=== PATIENT | female | born 1960 | race Caucasian/White ===

== ENCOUNTER 2022-07-03 16:26 | Emergency (ER) | payer MEDICARE, SELFPAY ==
--- NOTE | 2022-07-03 16:31 | XRR_ITS ---
PROCEDURE INFORMATION: Exam: XR Chest Exam date and time: 07/03/2022 4:39 PM Age: 62 years old Clinical indication: Pain; Angina pectoris; Additional info: Cp TECHNIQUE: Imaging protocol: Radiologic exam of the chest. Views: 1 view. COMPARISON: No relevant prior studies available. FINDINGS: Lungs: Unremarkable. No consolidation. Pleural spaces: Unremarkable. No pleural effusion. No pneumothorax. Heart/Mediastinum: Unremarkable. No cardiomegaly. Bones/joints: Unremarkable. XR/XR chest 1V portable [id number] IMPRESSION: No acute findings.
[2022-07-03 16:33] VITALS: BP 146/60; PULSE 110; RESP 20; TEMP 36.5; O2SAT 99
--- NOTE | 2022-07-03 16:42 | ECG_ITS ---
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 Measurements Intervals [place] Rate: 66 P: 24 DC: 217 QRS: -15 QRSD: 89 T: 27 QT: 409 QTc: 429 Interpretive Statements SINUS RHYTHM WITH FIRST DEGREE AV BLOCK LOW QRS VOLTAGE IN PRECORDIAL LEADS [QRS DEFLECTION < 1.0 mV IN CHEST LEADS] POSSIBLE ANTERIOR MYOCARDIAL INFARCTION , PROBABLY OLD INFERIOR MYOCARDIAL INFARCTION , PROBABLY OLD No previous ECG available for comparison Electronically Signed On 07-04-2022 8:35:10 CDT by Kyra Felix M.D. [email or web address] [facility] biloxiBee Cave Gamestr[facility].[employer]/store/[id number]
--- NOTE | 2022-07-03 19:28 | ECG_ITS ---
[facility] Test Date: 2022-07-03 Pat Name: Ainsley Gonzalez Department: Room: Gender: Female Integration Manager: : 1960 Requested By: Jr Chamorro Order Number: [id number] Nik MD: Kyra Felix M.D. Measurements Intervals [place] Rate: 108 P: 56 [place]: 140 QRS: -8 QRSD: 85 T: 34 QT: 318 QTc: 426 Interpretive Statements SINUS TACHYCARDIA POSSIBLE ANTERIOR MYOCARDIAL INFARCTION , PROBABLY OLD [30 ms Q WAVE IN V3/V4, OR R < 0.2 mV IN V4] ABNORMAL RHYTHM ECG Compared to ECG 07/03/2022 16:58:27 Sinus rhythm no longer present First degree AV block no longer present Myocardial infarct finding still present Electronically Signed On 07-04-2022 8:38:24 CDT by Kyra Felix M.D. [id number]
== END 2022-07-03 20:17 | disposition left against medical advice (07) ==
PROVIDERS: Emergency Provider Family Medicine
DX: Z53.21 Procedure and treatment not carried out due to patient leaving prior to being seen by health care provider (principal); R53.1 Weakness; R06.02 Shortness of breath
CPT/HCPCS: 71045; 93005

== ENCOUNTER 2022-07-09 10:53 | Inpatient (IN) | payer MEDICARE, SELFPAY ==
[2022-07-09] VITALS (61 sets, daily range): BP systolic 83–165; BP diastolic 41–133; PULSE 69–81; RESP 12–30; TEMP 36.2–36.7; O2SAT 79–100; BMI 36.3
--- NOTE | 2022-07-09 11:00 | XR_ITS ---
WS: [id number] Portable AP upright chest, 07/09/2022 Clinical Data: sob Comparison: Orbital chest, 07/03/2022. Findings: Bilateral patchy lower lobe opacities have developed since last chest x-ray. The right hilu m is prominent in the distal opacities have the appearance of pneumonia and/or atelectasis. There are streaky opacities in the left lower lobe. The upper lobes are clear. The heart is at the upper limit s of normal. The aortic arch and descending thoracic aorta show tortuosity. No nodules or effusions a re seen. There is no pneumothorax. XR/XR chest 1V portable [id number] Impression: 1. Development of patchy bilateral lower lobe opacities most consistent with pn eumonia. 2. Prominent right hilum. 3. Cardiomegaly. 4. Recommend repeat chest x-ray in 2-3 days.
--- NOTE | 2022-07-09 11:05 | ED_ITS ---
HPI - General Adult General: Chief complaint: General Medical Stated complaint: rectal bleeding Time Seen by Provider: 07/09/22 10:53 Source: patient and EMS Mode of arrival: EMS Limitations: no limitations History of Present Illness: 62-year-old female states she has history of hemorrhoids states she been having some rectal bleeding over the last 2 weeks states is actually slowed down the last 2 days had no blood in her stool today she states she is had some nausea though and feels extremely dehydrated. Associated symptoms: Reports malaise and nausea; Deny chest pain, dyspnea, headache(s) or rash Review of Systems Const: Reports: fatigue and malaise Eyes: Denies: blurry vision or eye discomfort ENMT: Denies: throat pain or dental pain Card: Denies: chest pain Resp: Denies: dyspnea GI: Reports: nausea and hematochezia : Denies: dysuria Musc: Denies: neck pain or back pain Skin/Breast: Denies: rash Neuro: Denies: headache(s) Psych: Denies: depression Estiven/Lymph: Denies: easy bruising All/Imm: Denies: urticaria PFSH ED PFSH: Medical History (Updated 07/09/22 @ 12:39 by Jr Chamorro MD) Hemorrhoid Social History (Updated 07/09/22 @ 11:06 by Jr Chamorro MD) Substance/Drug Use: never Physical Exam Const: COMMON NORMALS: no acute distress, patient oriented x3 and healthy appearing HENMT: COMMON NORMALS: normocephalic and atraumatic HEAD & SCALP: normocephalic and atraumatic Eye: COMMON NORMALS: Equal, round and reactive pupils present and EOMs intact bilaterally PUPIL: Yes Equal, round and reactive pupils present Neck/C-Spine: COMMON NORMALS: full ROM and supple Chest: COMMONS NORMALS: normal inspection of the chest and normal palpation of entire chest wall Resp: COMMON NORMALS: normal respiratory effort, No retractions, No use of accessory muscles and clear to auscultation bilaterally AUSCULTATION: clear to auscultation bilaterally Cardio: COMMON NORMALS: regular rate, regular rhythm and No murmurs present (Cardio) RATE: regular rate RHYTHM: regular rhythm GI: COMMON NORMALS: Normal to inspection, nondistended, normoactive bowel sounds present, Soft to palpation, non-tender and no masses PALPATION: Yes Soft to palpation OTHER: no blood on rectal exam no active bleeding Extremity: COMMON NORMALS: normal to inspection and full ROM Neuro: COMMON NORMALS: patient oriented x3, moves all extremities and no focal motor deficits Psych: COMMON NORMALS: mental status grossly normal, Normal thought process present and cooperative THOUGHT PROCESS: Normal thought process present Skin: COMMON NORMALS: no rashes or lesions noted and no wounds GENERAL SKIN EXAM: no rashes or lesions noted Course Vital Signs: Vital signs: Vital Signs Temperature 97.3 F L 07/09/22 10:54 Pulse Rate 72 07/09/22 10:54 Respiratory Rate 16 07/09/22 10:54 Blood Pressure 108/63 07/09/22 10:54 Pulse Oximetry 100 07/09/22 10:54 Oxygen Delivery Me thod 07/09/22 10:54 Oxygen Flow Rate 2 07/09/22 10:54 MDM - General Adult Medical Decision Making Patient presents here with anemia likely from a lower GI bleed her exam here she has no bleeding at this time her vitals have been stable she is quite anemic though x-ray shows a likely pneumonia as well spoke to hospitalist along with surgeon will transfuse and admit at this time. Lab Data : 07/09/22 11:25 07/09/22 11:25 Radiology Impressions Chest X-Ray 07/09/22 11:00 Impression: 1. Development of patchy bilateral lower lobe opacities most consistent with pneumonia. 2. Prominent right hilum. 3. Cardiomegaly. 4. Recommend repeat chest x-ray in 2-3 days. Laboratory Results WBC 14.4 10^3/uL (4.0-10.0) H 07/09/22 11:25 RBC 2.34 10^6/uL (4.1-5.3) L 07/09/22 11:25 Hgb 3.9 g/dL (11.5-15.3) L* 07/09/22 11:25 Hct 14.8 % (37.0-47.0) L* 07/09/22 11:25 MCV 63.2 fl (81-99) L 07/09/22 11:25 MCH 16.7 pg (28.0-34.0) L 07/09/22 11:25 MCHC 26.4 g/dL (30.0-36.0) L 07/09/22 11:25 RDW 16.9 % (12.1-15.1) H 07/09/22 11:25 Plt Count 358 10^3/cmm (130-400) 07/09/22 11:25 MPV 9.2 fL (7.4-10.4) 07/09/22 11:25 Neut % (Auto) 75.9 % 07/09/22 11:25 Lymph % (Auto) 13.2 % 07/09/22 11:25 [place] % (Auto) 8.8 % 07/09/22 11:25 Eos % (Auto) 0.5 % 07/09/22 11:25 Baso % (Auto) 0.1 % 07/09/22 11:25 Neut # (Auto) 10.98 10^3/uL (1.8-7.7) H 07/09/22 11:25 Lymph # (Auto) 1.9 10^3/uL (0.8-4.8) 07/09/22 11:25 [place] # (Auto) 1.3 10^3/uL (0.2-0.9) H 07/09/22 11:25 Eos # (Auto) 0.1 10^3/uL (0.0-0.8) 07/09/22 11:25 Baso # (Auto) 0.0 10^3/uL (0.0-0.1) 07/09/22 11:25 Nucleated RBC % (auto) 3.0 % 07/09/22 11:25 Nucleated RBCs # 0.4 /100WBC 07/09/22 11:25 PT 16.60 SECONDS (12.1-14.9) H 07/09/22 11:25 INR 1.31 (0.8-1.2) H 07/09/22 11:25 Sodium 124 mmol/L (136-145) L 07/09/22 11:25 Potassium 3.5 mmol/L (3.5-5.1) 07/09/22 11:25 Chloride 88 mmol/L (98-107) L 07/09/22 11:25 Carbon Dioxide 21 mmol/L (22-29) L 07/09/22 11:25 Anion Gap 18.5 (5-19) 07/09/22 11:25 BUN 22 mg/dL (8-23) 07/09/22 11:25 Creatinine 1.1 mg/dL (0.5-0.9) H 07/09/22 11:25 GFR Calculation 50.5 mL/min (90-130) L 07/09/22 11:25 Glucose 216 mg/dL (65-115) H 07/09/22 11:25 Calculated Osmolality 268 mOsm/kg (285-295) L 07/09/22 11:25 Calcium 7.9 mg/dL (8.5-10.5) L 07/09/22 11:25 Total Bilirubin 0.6 mg/dL (0.15-1.2) 07/09/22 11:25 AST 491 U/L (0-32) H 07/09/22 11:25 ALT 451 U/L (0-33) H 07/09/22 11:25 Alkaline Phosphatase 107 U/L (35-105) H 07/09/22 11:25 NT-Pro-B Natriuret Pep 555 pg/mL (0-125) H 07/09/22 11:25 Total Protein 6.5 g/dL (6.6-8.7) L 07/09/22 11:25 Albumin 3.3 g/dL (3.5-5.2) L 07/09/22 11:25 Globulin 3.2 g/dL (1.3-4.6) 07/09/22 11:25 Lipase 41 U/L (13-60) 07/09/22 11:25 Critical Care Time Critical Care Time: Critical Care Time: Yes Total Critical Care Time: 40 Attestation: The high probability of a clinically significant, sudden or life threatening deterioration of the patient's g system(s) required my full and direct atten tion, intervention and personal management. The critical care time is as shown. This time is in addition to time spent performing any reported procedures but includes the following: [x] Data and vital sign review and interpretation [x] Patient assessment, examination and intervention [x] Documentation [x] Medication orders and management Discharge Plan Discharge Patient Disposition: Admitted As Inpatient Clinical Impression: Acute lower gastrointestinal bleeding, Anemia, Pneumonia Coding Level of Care Code ED Director Social for [facility] Fwd Exam Comprehensive
[2022-07-09 11:46] LABS: Basophils % 0.1 %; Eosinophils # 0.1 10^3/uL (0.0-0.8); Eosinophils % 0.5 %; Lymphocytes # 1.9 10^3/uL (0.8-4.8); Lymphocytes % 13.2 %; Mean Corpuscular HGB Conc 26.4 g/dL (30.0-36.0); Mean Corpuscular Hemoglobin 16.7 pg (28.0-34.0); Mean Corpuscular Volume 63.2 fl (81-99); Mean Platelet Volume 9.2 fL (7.4-10.4); Monocytes # 1.3 10^3/uL (0.2-0.9); Monocytes % 8.8 %; Neutrophils # 10.98 10^3/uL (1.8-7.7); Neutrophils % 75.9 %; Nucleated Red Blood Cells # 0.4 /100WBC; Platelet Count 358 10^3/cmm (130-400); Red Blood Count 2.34 10^6/uL (4.1-5.3); Red Cell Distribution Width 16.9 % (12.1-15.1); White Blood Count 14.4 10^3/uL (4.0-10.0)
[2022-07-09 11:48] LABS: Hemoglobin 3.9 g/dL (11.5-15.3)
[2022-07-09 11:49] LABS: Hematocrit 14.8 % (37.0-47.0)
--- NOTE | 2022-07-09 11:53 | PC.NURSE ---
pt reports rectal bleeding for 2 weeks. reports today feels lightheadedness, nausea, and vomiting. reports her blood sugar has been elevated at 345. reports rectal bleeding is bright red and significant amount that she cannot see her BM due to the redness of the toilet water. denies diarrhea pt reports blood clots the size of her hand. pt is alert, speech clear, speaking in complete sentences. skin pink/warm/dry. pt lung sounds clear. bowel sounds hyperactive. abdomen soft to palpation
[2022-07-09 11:59] LABS: INR 1.31 (0.8-1.2)
[2022-07-09] MEDS: sodium chloride 0.9% 1,000 ML 999 ML IV (11:59)
[2022-07-09] MEDS: ondansetron 2 mg/ML SDV 2 mL 4 MG IVP (12:16)
[2022-07-09 12:24] LABS: Alanine Aminotransferase 451 U/L (0-33); Albumin Level 3.3 g/dL (3.5-5.2); Alkaline Phosphatase 107 U/L (35-105); Anion Gap 18.5 (5-19); Aspartate Amino Transferase 491 U/L (0-32); Blood Urea Nitrogen 22 mg/dL (8-23); Calcium 7.9 mg/dL (8.5-10.5); Carbon Dioxide 21 mmol/L (22-29); Chloride 88 mmol/L (98-107); Globulin 3.2 g/dL (1.3-4.6); Glomerular Filtration Rate 50.5 mL/min (90-130); Glucose 216 mg/dL (65-115); Lipase 41 U/L (13-60); NT Pro B Type Natriuretic Pept 555 pg/mL (0-125); Osmolality Calculated 268 mOsm/kg (285-295); Potassium 3.5 mmol/L (3.5-5.1); Sodium 124 mmol/L (136-145); Total Bilirubin 0.6 mg/dL (0.15-1.2); Total Protein 6.5 g/dL (6.6-8.7)
[2022-07-09] MEDS: cefTRIAXone 1,000 MG in sodium chloride 0.9% (plus) 50 ML 100 MG IV (13:05)
[2022-07-09 13:17] LABS: Hematocrit 13.8 % (37.0-47.0); Hemoglobin 3.7 g/dL (11.5-15.3)
--- NOTE | 2022-07-09 13:25 | ECG_ITS ---
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 Measurements Intervals [place] Rate: 77 P: 59 [place]: 152 QRS: 27 QRSD: 89 T: 57 QT: 391 QTc: 444 Interpretive Statements SINUS RHYTHM NONSPECIFIC ST & T-WAVE ABNORMALITY Compared to ECG 07/03/2022 19:28:44 T-wave abnormality now present Sinus tachycardia no longer present Myocardial infarct finding no longer present Electronically Signed On 07-09-2022 20:44:03 CDT by Kristi Gomes M.D. [id number]
[2022-07-09 13:38] LABS: SARS Covid-2 Antigen Negative (Negative)
[2022-07-09] MEDS: azithromycin 500 MG in sodium chloride 0.9% 250 ML 250 MG IV (13:48)
--- NOTE | 2022-07-09 14:47 | PC.NURSE ---
blood transfusion in progress, RN remaining in room for first 15 minutes. pt tolerating infusing well. pt reports she has had multiple blood transfusions in the past.
[2022-07-09] MEDS: sodium chloride 0.9% (100 ml) 100 ML 400 ML (16:31)
[2022-07-09 17:08] LABS: Urine Appearance Hazy (CLEAR); Urine Color Yellow (Yellow)
[2022-07-09 17:09] LABS: Add Urine Culture? No; Add Urine Microscopic? YES; Bacteria Urine 1+ /hpf; Bilirubin Urine 1+ (Negative); Blood Urine Neg (Negative); Glucose Urine UA Norm (Normal); Ketones Urine Negative (Negative); Leukocyte Esterase Urine Negative (Negative); Nitrate Urine Negative (Negative); Protein Urine 1+ (Negative); RBC Urine 0-4 /hpf (0-2); Squamous Epithelial Cell Urine 0-4 /hpf (0-5); Urobilinogen Urine 1 mg/dL (Negative); WBC Urine 0-4 /hpf (0-5); pH Urine 5 (5-7)
[2022-07-09 17:33] LABS: Hematocrit 17.4 % (37.0-47.0); Hemoglobin 4.9 g/dL (11.5-15.3)
--- NOTE | 2022-07-09 17:59 | PM.CONSULT ---
Providers/Reason For Consult Consulting Physician/Specialty*: Lower GI bleed Reason for Consult*: Chinedu Kendall MD Attending Physician: Zenobia García MD History of Present Illness History of Present Illness Ms. Ainsley Gonzalez is a pleasant 62 year old female presenting to the emergency department with weakness associated with rectal bleeding that has been taking place over the past couple of weeks and eventually it did slow down and started to have another episode of fresh bleeding per rectum associated with blood clots. Patient presented to the emergency department for further evaluation and she reported to me that she had previous hemorrhoid surgery many years ago and had a colonoscopy back in 2016 and that was normal per her description. Patient gives history of COPD. Patient denies history of peptic ulcer disease or being on blood thinners. Patient was admitted on the hospitalist service in the ICU setting for further resuscitation and evaluation General surgery was consulted for further care. Review of Systems General: Reports: 10 or more systems reviewed and unremarkable except in HPI and below Medications/Allergies Home Medications Medication Instructions Recorded Confirmed Last Taken Type albuterol sulfate 90 mcg/actuation 2 puff inhalation Q4H PRN 07/09/22 07/09/22 Unknown History aerosol inhaler Shortness Of Breath Or Wheezing aspirin-caffeine 500 mg-32.5 mg 1 tab PO Q6H PRN Pain 07/09/22 07/09/22 07/08/22 History tablet (Niurka Back and Body) biotin 5,000 mcg disintegrating 5,000 mcg PO DAILY 07/09/22 07/09/22 07/08/22 History tablet docusate sodium 100 mg tablet 200 mg PO BEDTIME 07/09/22 07/09/22 07/08/22 History (Stool Softener) duloxetine 60 mg capsule,delayed 60 mg PO BEDTIME 07/09/22 07/09/22 07/08/22 History release estradiol 2 mg tablet 2 mg PO DAILY 07/09/22 07/09/22 07/08/22 History magnesium 250 mg tablet 250 mg PO BEDTIME 07/09/22 07/09/22 07/08/22 History melatonin 10 mg tablet 10 mg PO BEDTIME 07/09/22 07/09/22 07/08/22 History metformin 1,000 mg tablet 1,000 mg PO BID 07/09/22 07/09/22 07/08/22 History metoprolol succinate 100 mg 100 mg PO DAILY 07/09/22 07/09/22 07/08/22 History tablet,extended release 24 hr omeprazole 20 mg capsule,delayed 20 mg PO DAILY 07/09/22 07/09/22 07/08/22 History release pramipexole 1 mg tablet 2 mg PO BID 07/09/22 07/09/22 07/08/22 History progesterone micronized 200 mg 200 mg PO BEDTIME 07/09/22 07/09/22 07/08/22 History capsule thyroid (pork) 30 mg tablet (CERTIFIED MEDICINE AIDE 30 mg PO DAILY 07/09/22 07/09/22 07/08/22 History Thyroid) triamterene 37.5 1 cap PO DAILY 07/09/22 07/09/22 07/08/22 History mg-hydrochlorothiazide 25 mg capsule zinc 50 mg tablet 50 mg PO BID 07/09/22 07/09/22 07/08/22 History Allergies Allergy/AdvReac Type Severity Reaction Status Date / Time No Known Allergies Allergy Verified 07/09/22 18:03 PFSH Acute PFSH: Medical History Hemorrhoid Social History Substance/Drug Use: never Vitals/I&O/Wt Last Vital Signs Temp 97.2 F L 07/09/22 17:37 Pulse 78 07/09/22 17:37 Resp 12 07/09/22 17:37 BP 118/70 07/09/22 17:37 Pulse Ox 100 07/09/22 17:37 O2 Del Method 07/09/22 10:54 O2 Flow Rate 2 07/09/22 10:54 07/09/22 07/09/22 07/09/22 06:59 14:59 22:59 Intake Total 300 / 300 250 / 550 Balance 300 / 300 250 / 550 Weight last 48 hrs Weight 212 lb Physical Exam Const: COMMON NORMALS: no acute distress and patient oriented x3 GENERAL APPEARANCE: cooperative ORIENTATION/CONSCIOUSNESS: Yes awake, Yes oriented to person, Yes oriented to place and Yes oriented to time HENMT: COMMON NORMALS: normocephalic HEAD & SCALP: normocephalic Eye: COMMON NORMALS: Equal, round and reactive pupils present and no scleral icterus PUPIL: Yes Equal, round and reactive pupils present Lymph: LYMPHATIC: no lymphadenopathy noted Chest: COMMONS NORMALS: normal inspection of the chest Resp: COMMON NORMALS: normal respiratory effort and clear to auscultation bilaterally AUSCULTATION: clear to auscultation bilaterally Cardio: COMMON NORMALS: S1 normal heart sound present and S2 normal heart sound present; negative for No murmurs present (Cardio) HEART SOUNDS: S1 normal heart sound present and S2 normal heart sound present GI: COMMON NORMALS: Soft to palpation; negative for No hepatosplenomegaly present INSPECTION: Yes normal to inspection PALPATION: Yes Soft to palpation, No Firmness to palpation present (GI), No Tenderness to palpation present (GI), No Guarding due to palpation present (GI), No Rigid due to palpation and No No hepatosplenomegaly present Neuro: COMMON NORMALS: patient oriented x3 SENSORIUM/ORIENTATION: Yes oriented to person, Yes oriented to place and Yes oriented to time Psych: COMMON NORMALS: mental status grossly normal Skin: COMMON NORMALS: no rashes or lesions noted GENERAL SKIN EXAM: no rashes or lesions noted Data : 07/09/22 17:11 07/09/22 11:25 Micro: Microbiology 07/09/22 12:38 Blood Culture - Preliminary Blood SPECIMEN COLLECTED 07/09/22 12:41 Blood Culture - Preliminary Blood SPECIMEN COLLECTED A&P Assessment and plan (1) Acute lower gastrointestinal bleeding: Plan of care; After thorough history and physical examination and reviewing the chart, plan to perform a diagnostic esophagogastroduodenoscopy and diagnostic colonoscopy with possible biopsy and possible polypectomy with examination under anesthesia and possible hemorrhoidectomy. We will plan to proceed once medically appropriate and patient is well resuscitated. At the same time if patient shows signs of deterioration and continue to have more episodes of bleeding I would highly recommend to have the patient transferred to higher level of care for potential angioembolization as we do lack in our facility. As the source of bleeding could be from an upper GI or lower GI source. If the patient's EGD and colonoscopy are normal the neck step would be capsule endoscopy. Continue n.p.o. except for ice chips and close monitoring in the ICU Assurance and education All questions have been answered and all concerns have been addressed to patient's satisfaction. Status: Acute Consult Attestations Medical Necessity Statement: Per admitting service Coding Level of Care Code Acute Back Up Machine Operator for g Fwd Diagnoses Acute lower gastrointestinal bleeding K92.2
[2022-07-09] MEDS: pantoprazole 40 mg SDV IVP (18:49)
[2022-07-09] MEDS: sodium chloride 0.9% (100 ml) 100 ML (18:49)
--- NOTE | 2022-07-09 19:28 | P.HP_ITS ---
Providers/Chief Complaint Admitting Physician: Zenobia García MD Chief Complaint: rectal bleeding History of Present Illness Ainsley Gonzalez is a 62 year old female PMH hemorrhoids presenting to the ER today for c/o broght red bleeding per rectum which started 2 weeks ago. Initially it was sporadic, later became more frequent for which she came to ER. additionally now c/o fatigue, chest tightness and shortness of breath with minimal exertion. bleeding per rectum is associated with bowel movements. Stool is brown colores. no noted susi, no hematemesis. H/o rectal bleeding + in the past needing cauterization. Hb has dropped to 5 in the past. Required multiple blood transfusions. HB today at 3.9. BP at time of assessment is 100/68mmhg. No tachycardia. Denies abdominal pain. Review of Systems General: Reports: 10 or more systems reviewed and unremarkable except in HPI and below Const: Denies: fever(s), chills or body aches Eyes: Denies: change in vision, blurry vision or photophobia ENMT: Reports: hoarseness; Denies: throat pain, enlarged tonsils, odynophagia or nasal congestion Card: Denies: chest pain, palpitations, irregular heart rhythm, edema, swelling of feet/ankles, lightheadedness, pre-syncope, dyspnea on exertion or orthopnea Resp: Denies: dyspnea, productive cough, non-productive cough, wheezing, stridor, pain on inspiration, change in phlegm color, hemoptysis or chest co ngestion GI: Denies: abdominal pain, nausea, vomiting, hematemesis, coffee ground emesis, dysphagia, heartburn, diarrhea, constipation, GI cramping, change in stool character, hematochezia or melena : Denies: flank pain, difficulty voiding, dysuria, urinary frequency, urinary urgency, urinary hesitancy or hematuria Musc: Denies: neck pain, back pain, extremity pain, joint swelling, joint warmth or deformity Neuro: Denies: headache(s), numbness in extremities, weakness in extremities, sensory changes, difficulty walking, frequent falls, dizziness, vertigo, behavioral changes, Slurred speech present or seizure-like activity Psych: Denies: anxiety, depression, suicidal ideation or homicidal ideation Endo: Denies: polyuria, polydipsia, tired all the time, cold intolerance or hot flashes Estiven/Lymph: Denies: easy bruising or easy bleeding Medications/Allergies Home Medications Medication Instructions Recorded Confirmed Last Taken Type albuterol sulfate 90 mcg/actuation 2 puff inhalation Q4H PRN 07/09/22 07/09/22 Unknown History aerosol inhaler Shortness Of Breath Or Wheezing aspirin-caffeine 500 mg-32.5 mg 1 tab PO Q6H PRN Pain 07/09/22 07/09/22 07/08/22 History tablet (Niurka Back and Body) biotin 5,000 mcg disintegrating 5,000 mcg PO DAILY 07/09/22 07/09/22 07/08/22 History tablet docusate sodium 100 mg tablet 200 mg PO BEDTIME 07/09/22 07/09/22 07/08/22 History (Stool Softener) duloxetine 60 mg capsule,delayed 60 mg PO BEDTIME 07/09/22 07/09/22 07/08/22 History release estradiol 2 mg tablet 2 mg PO DAILY 07/09/22 07/09/22 07/08/22 History magnesium 250 mg tablet 250 mg PO BEDTIME 07/09/22 07/09/22 07/08/22 History melatonin 10 mg tablet 10 mg PO BEDTIME 07/09/22 07/09/22 07/08/22 History metformin 1,000 mg tablet 1,000 mg PO BID 07/09/22 07/09/22 07/08/22 History metoprolol succinate 100 mg 100 mg PO DAILY 07/09/22 07/09/22 07/08/22 History tablet,extended release 24 hr omeprazole 20 mg capsule,delayed 20 mg PO DAILY 07/09/22 07/09/22 07/08/22 History release pramipexole 1 mg tablet 2 mg PO BID 07/09/22 07/09/22 07/08/22 History progesterone micronized 200 mg 200 mg PO BEDTIME 07/09/22 07/09/22 07/08/22 History capsule thyroid (pork) 30 mg tablet (AUDITING SPECIALIST 30 mg PO DAILY 07/09/22 07/09/22 07/08/22 History Thyroid) triamterene 37.5 1 cap PO DAILY 07/09/22 07/09/22 07/08/22 History mg-hydrochlorothiazide 25 mg capsule zinc 50 mg tablet 50 mg PO BID 07/09/22 07/09/22 07/08/22 History Allergies Allergy/AdvReac Type Severity Reaction Status Date / Time No Known Allergies Allergy Verified 07/09/22 18:03 PFSH Acute PFSH: Medical History Hemorrhoid Social History Substance/Drug Use: never Vitals/I&O/Wt Last Vital Signs Temp 98.1 F 07/09/22 18:11 Pulse 76 07/09/22 18:11 Resp 18 07/09/22 18:11 BP 101/76 07/09/22 18:11 Pulse Ox 96 07/09/22 18:11 O2 Del Method 07/09/22 17:51 O2 Flow Rate 2 07/09/22 10:54 07/09/22 07/09/22 07/09/22 06:59 14:59 22:59 Intake Total 300 / 300 250 / 550 Balance 300 / 300 250 / 550 Weight last 48 hrs Weight 96.162 kg Physical Exam Narrative: General: No acute distress, AO x3 HEENT: PERRLA, pupils bilaterally equal and reactive Chest: Normal vesicular breath sounds, no added sounds, equal good air entry bilaterally CVS: S1-S2 regular, no murmurs, no tachycardia, no gallops, no rubs Abdomen: Soft, nontender, no organomegaly, bowel sounds present Neuro: No focal deficits, no facial deformity, AO x3, power 5/5 in all limbs Extremities: no edema, clubbing, LAD Data : 07/09/22 17:11 07/09/22 11:25 Micro: Microbiology 07/09/22 12:38 Blood Culture - Preliminary Blood SPECIMEN COLLECTED 07/09/22 12:41 Blood Culture - Preliminary Blood SPECIMEN COLLECTED A&P Assessment and plan (1) Acute lower gastrointestinal bleeding: bright red bleeding er rectum May be hemorrhoidal bleed Last bloody BM at ~5PM today NPO in anticiptaion of colonoscopy Hb at 3.9, transfuse 3 units blood , monitor h&h every 8 hrs BP currently stable, likely suggesting subacute bleeding Status: Acute (2) Anemia: Likely from blood loss PRBC transfusion as above Likely that exertional dyspnea is related to anemia. will check baseline troponin No ST-T wave changes on EKG Status: Acute Attestations Medical Necessity Statement*: anticipate >2midnight admission for management of lower GI bleed, anemia, transfusion, likely GI scope Critical Care Time: The high probability of a clinically significant, sudden or life threatening deterioration of the patient's [heme,GI] system(s) required my full and direct attention, intervention and personal management. The critical care time is as shown. This time is in addition to time spent performing any reported procedures but includes the following: [x] Data and vital sign review and interpretation [x] Patient assessment, examination and intervention [x] Documentation [x] Medication orders and management Critical Care Time (min): 45 Coding Level of Care Code Acute Veterinary Attendant for [facility] Fwd Diagnoses Acute lower gastrointestinal bleeding K92.2 Anemia D64.9
[2022-07-09] MEDS: duloxetine 60 mg Capsule PO (20:19)
[2022-07-09] MEDS: docusate sodium 100 mg Capsule 200 MG PO (20:19)
[2022-07-09] MEDS: hyDROXYzine 25 mg Capsule PO (20:19)
--- NOTE | 2022-07-09 22:17 | USCV_ITS ---
Ainsley Gonzalez Age: 62 Gender: F : 1960 Exam Date: 07/09/2022 23:18 Ordering Phys: Zenobia García MD Technologist: NASREEN Exam Location: [facility] [place] Indication: anemia c/o bleeding hemorrhoids, No history of cardiac intervention per patient. BP: 129 / 63 HR: 74 Rhythm: Sinus Technical Quality: Adequate MEASUREMENTS (Male / Female) Normal Values 2D ECHO LV Diastolic Diameter PLAX 4.5 cm 4.2 - 5.9 / 3.9 - 5.3 cm LV Systolic Diameter PLAX 2.9 cm IVS Diastolic Thickness 1.7 cm 0.6 - 1.0 / 0.6 - 0.9 cm IVS Systolic Thickness 1.9 cm LVPW Diastolic Thickness 1.4 cm 0.6 - 1.0 / 0.6 - 0.9 cm LVPW Systolic Thickness 1.6 cm LVOT Diameter 1.9 cm LV Ejection Fraction 2D Teich 64.3 % LV Ejection Fraction MOD 2C 64.5 % LV Ejection Fraction 2C AL 64.2 % LA Diameter 3.8 cm LA Width 5.0 cm LA Height 5.6 cm RA Width 3.4 cm RA Height 4.0 cm Aorta at Sinotubular Diameter 2.7 cm IVC Diameter 2.6 cm M-MODE Aortic Annulus Diameter 2.4 cm LA Ao Ratio MM 1.7 MV E Point Septal Separation 0.3 cm DOPPLER AV Peak Velocity 142.0 cm/s LVOT Peak Velocity 100.0 cm/s AV Area Cont Eq vti 2.0 cm squared AV Area Cont Eq pk 2.0 cm squared MV Area PHT 4.2 cm squared Mitral E to A Ratio 1.1 MV E' Velocity 64.5 cm/s Mitral E to MV E' Ratio 10.8 Mitral E to LV E' Lateral Ratio 11.9 Mitral E to LV E' Septal Ratio 10.0 TR Peak Velocity 281.0 cm/s TR Peak Gradient 31.6 mmHg TV Peak E Velocity 69.0 cm/s Right Atrial Pressure 5.0 mmHg Pulmonary Artery Systolic Pressu 36.6 mmHg PV Peak Velocity 85.0 cm/s RV Acceleration Time 0.2 s RV Ejection Time 0.4 s RV AcT/ET 0.4 FINDINGS Left Ventricle Normal left ventricular cavity size and mildly increased wall thickness. Normal left ventricular systolic function. Left ventricular ejection fraction is estimated at 65 %. Normal diastolic function. Right Ventricle Normal right ventricular size and systolic function. Right ventricular systolic pressure 50 mmHg. Right Atrium Normal right atrial size. Left Atrium Mildly increased left atrial size. Mitral Valve Structurally normal mitral valve. No mitral valve stenosis. Mild mitral valve regurgitation. Aortic Valve Structurally normal trileaflet aortic valve. No aortic valve stenosis. No aortic valve regurgitation. Tricuspid Valve Structurally normal tricuspid valve. No tricuspid valve stenosis. Trace to mild tricuspid valve regurgitation. Pulmonic Valve Pulmonic valve not well visualized. No pulmonary valve stenosis. No pulmonary valve regurgitation. Pericardium No pericardial effusion. Aorta Normal size aortic root and proximal ascending aorta. IVC Dilated inferior vena cava with no respiratory variation. CONCLUSIONS 1. Normal left ventricular cavity size and mildly increased wall thickness. Normal left ventricular systolic function. Left ventricular ejection fraction is estimated at 65 %. Normal diastolic function. 2. Normal right ventricular size and systolic function. 3. Mild mitral valve regurgitation. 4. Moderate pulmonary hypertension with pulmonary pressure estimated at 50 mmHg. 5. Dilated inferior vena cava with no respiratory variation. 6. No prior similar studies to compare. Kyra Felix MD (Electronically Signed) Final Date: 10 July 2022 12:21 S
[2022-07-10] VITALS (95 sets, daily range): BP systolic 94–157; BP diastolic 50–103; PULSE 63–89; RESP 12–32; TEMP 36.4–36.7; O2SAT 88–100
--- NOTE | 2022-07-10 00:17 | ECG_ITS ---
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 Measurements Intervals [place] Rate: 80 P: 76 MI: 153 QRS: 72 QRSD: 85 T: 87 QT: 388 QTc: 448 Interpretive Statements SINUS RHYTHM NONSPECIFIC T-WAVE ABNORMALITY Compared to ECG 07/09/2022 13:25:39 No significant changes Electronically Signed On 07-10-2022 16:31:13 CDT by Kyra Felix M.D. [id number]
[2022-07-10 00:38] LABS: Troponin T (5th) Once 25 ng/L (0-10)
[2022-07-10 00:44] LABS: Hematocrit 21.3 % (37.0-47.0)
[2022-07-10 01:14] LABS: Hemoglobin 6.2 g/dL (11.5-15.3)
[2022-07-10 01:36] LABS: Procalcitonin 0.13 ng/mL (0-0.5)
--- NOTE | 2022-07-10 04:17 | ECG_ITS ---
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 Measurements Intervals [place] Rate: 74 P: 58 CO: 159 QRS: 27 QRSD: 94 T: 47 QT: 386 QTc: 430 Interpretive Statements SINUS RHYTHM Compared to ECG 07/10/2022 01:39:36 T-wave abnormality no longer present Electronically Signed On 07-10-2022 16:30:55 CDT by Kyra Felix M.D. [email or web address]invendo medicalloma linda university medical centerFlickr/store/[id number]
[2022-07-10] MEDS: sodium chloride 0.9% (100 ml) 100 ML (05:42)
--- NOTE | 2022-07-10 06:07 | CT_ITS ---
WS: [id number] CT ABDOMEN PELVIS TECHNIQUE: Contrast-enhanced CT of the abdomen and pelvis with coronal and sagittal reformatted image s. CLINICAL INFORMATION: Lower GI bleed COMPARISON: None. DLP: 921.[address] scans at [facility] use at least one of these dose optimization techniques: automated e xposure control; mA and/or kV adjustment per patient size (includes targeted exams where dose is matc hed to clinical indication); or iterative reconstruction. FINDINGS: Diffuse fatty infiltration liver. Cholecystectomy clips. Mild intrahepatic biliary dilatation likely physiologic postcholecystectomy. Normal portal vein and splenic vein. Normal spleen. Normal GE juncti on. Small RIGHT greater than LEFT pleural effusions. Compressive atelectasis in the lower lobes RIGHT greater than LEFT. Small amount of inflammatory stranding and fluid about the C-loop of the duodenum is nonspecific but can be seen with duodenitis. Normal pancreatic enhancement. No definite evidence of acute pancreatitis. Common bile duct appears to taper normally. Adrenal glands are normal. Normal renal parenchymal enhancement. No hydronephrosis. Normal caliber ab dominal aorta. Sigmoid diverticulosis. Mild thickening involving the sigmoid colon with minimal induration can be se en with early or mild diverticulitis. No drainable abscess or fluid collection. Colon is otherwise no rmal in appearance. Trace fluid in the pelvis. Normal caliber abdominal aorta. Tiny fat-containing umbilical hernia. Minimal anterolisthesis L4 on L 5. CT/CT abdomen pelvis w con* [id number] IMPRESSION: 1. Suspicion for mild or early diverticulitis with thickening of the sigmoid c olon with minimal induration. 2. Small RIGHT greater than LEFT pleural effusion with compressive atelectasis in the lung bases. 3. Small amount of induration and edema about the C-loop of duodenum can be se en with duodenitis. Pancreas appears normal. Recommend correlation with pancrea tic function studies to exclude pancreatitis. 4. Mild diffuse fatty infiltration of the liver. 5. No other suspicious findings.
[2022-07-10] MEDS: sodium chloride 0.9% 1,000 ML 100 ML IV (06:33)
[2022-07-10 06:49] LABS: Basophils # 0.1 10^3/uL (0.0-0.1); Basophils % 0.6 %; Eosinophils # 0.1 10^3/uL (0.0-0.8); Eosinophils % 1.1 %; Hematocrit 25.6 % (37.0-47.0); Hemoglobin 7.8 g/dL (11.5-15.3); Lymphocytes # 1.7 10^3/uL (0.8-4.8); Lymphocytes % 15.6 %; Mean Corpuscular HGB Conc 30.5 g/dL (30.0-36.0); Mean Corpuscular Hemoglobin 21.5 pg (28.0-34.0); Mean Platelet Volume 9.4 fL (7.4-10.4); Monocytes # 0.8 10^3/uL (0.2-0.9); Monocytes % 7.2 %; Neutrophils # 7.88 10^3/uL (1.8-7.7); Neutrophils % 72.9 %; Nucleated Red Blood Cells # 0.3 /100WBC; Nucleated Red Blood Cells % 2.6 %; Platelet Count 372 10^3/cmm (130-400); Red Blood Count 3.62 10^6/uL (4.1-5.3); Red Cell Distribution Width 24.3 % (12.1-15.1); White Blood Count 10.8 10^3/uL (4.0-10.0)
[2022-07-10 06:50] LABS: Mean Corpuscular Volume 70.7 fl (81-99)
[2022-07-10] MEDS: iohexol 350 mg/mL 100 mL Btl IV (09:02)
[2022-07-10] MEDS: pantoprazole 40 mg SDV IVP ×2 (09:06→13:48)
[2022-07-10] MEDS: peg /e-lyte soln 4,000 mL Btl 4000 ML PO (09:06)
[2022-07-10] MEDS: metoprolol succinate ER (24 HR) 100 mg Tablet PO (09:07)
[2022-07-10 09:54] LABS: Hematocrit 25.3 % (37.0-47.0); Hemoglobin 7.6 g/dL (11.5-15.3)
[2022-07-10 10:10] LABS: Alanine Aminotransferase 498 U/L (0-33); Albumin Level 3.1 g/dL (3.5-5.2); Alkaline Phosphatase 125 U/L (35-105); Anion Gap 15.8 (5-19); Aspartate Amino Transferase 359 U/L (0-32); Blood Urea Nitrogen 14 mg/dL (8-23); Calcium 7.5 mg/dL (8.5-10.5); Carbon Dioxide 23 mmol/L (22-29); Chloride 93 mmol/L (98-107); Glomerular Filtration Rate 72.9 mL/min (90-130); Glucose 160 mg/dL (65-115); Osmolality Calculated 272 mOsm/kg (285-295); Sodium 129 mmol/L (136-145); Total Bilirubin 1.3 mg/dL (0.15-1.2); Total Protein 6.1 g/dL (6.6-8.7)
[2022-07-10 10:16] LABS: Potassium 2.8 mmol/L (3.5-5.1)
[2022-07-10 10:42] LABS: Hepatitis A Antibody IgM Non-Reactive (Nonreactive); Hepatitis B Core AB, Total Non-Reactive (Nonreactive); Hepatitis B Surface AB 3.5 (11.5-1000); Hepatitis B Surface Antigen Non-Reactive (Nonreactive); Hepatitis C Virus Antibody Non-Reactive (Nonreactive)
[2022-07-10 12:07] LABS: Troponin T (5th) Once 36 ng/L (0-10)
[2022-07-10] MEDS: FUROsemide 10 mg/mL SDV 4mL 40 MG IVP (13:29)
[2022-07-10] MEDS: potassium chloride premix 100 ML 25 MEQ IV ×2 (13:30→17:35)
[2022-07-10] MEDS: piperacillin-tazobactam 3.375 GM in sodium chloride 0.9% (plus) 50 ML IV ×2 (13:48→23:11)
[2022-07-10] MEDS: lidocaine 1% INJ 20 mL 5 ML IV (13:48)
--- NOTE | 2022-07-10 13:52 | ECG_ITS ---
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 Measurements Intervals [place] Rate: 78 P: 57 NE: 163 QRS: 23 QRSD: 85 T: 48 QT: 373 QTc: 425 Interpretive Statements SINUS RHYTHM WITH SINUS ARRHYTHMIA Compared to ECG 07/10/2022 06:27:07 No significant changes Electronically Signed On 07-10-2022 16:22:29 CDT by Kyra Felix M.D. [email or web address] memorial community hospitalBlu Health Systemsgenesis hospitalCollete Davis Racing[employer]/store/[id number]
[2022-07-10] MEDS: morphine 4 mg/mL SDV 1 mL 2 MG IVP (13:55)
--- NOTE | 2022-07-10 13:58 | P.PN_ITS ---
Subjective Subjective: Patient complains of chest pressure. Similar to the one she was experiencing last evening. Troponins have been at 20, then 35. No acute changes on EKG. Abdominal CT was performed earlier this morning per surgery recommendations which showed possible diverticulitis. Additionally also showed bilateral pleural effusions. She had 1 bloody bowel movement this morning. Medications: Reviewed: Yes Vitals/I&O/Wt Last Vital Signs Temp 97.9 F 07/10/22 03:30 Pulse 75 07/10/22 12:30 Resp 22 H 07/10/22 13:55 BP 144/80 07/10/22 06:15 Pulse Ox 93 07/10/22 13:55 O2 Del Method 07/10/22 09:45 O2 Flow Rate 2 07/10/22 09:45 07/09/22 07/10/22 07/10/22 22:59 06:59 14:59 Intake Total 1800 / 2100 350 / 2450 Output Total 150 / 150 275 / 425 Balance 1650 / 1950 75 / 2025 Weight last 48 hrs Weight 99.473 kg Weight 96.162 kg Physical Exam Narrative: General: No acute distress, AO x3 HEENT: PERRLA, pupils bilaterally equal and reactive Chest: Normal vesicular breath sounds, no added sounds, equal good air entry bilaterally CVS: S1-S2 regular, no murmurs, no tachycardia, no gallops, no rubs Abdomen: Soft, nontender, no organomegaly, bowel sounds present Neuro: No focal deficits, no facial deformity, AO x3, power 5/5 in all limbs Extremities: no edema, clubbing, LAD Data : 07/10/22 09:40 07/10/22 09:40 Micro: Microbiology 07/09/22 12:38 Blood Culture - Preliminary Blood NEGATIVE TO DATE 07/09/22 12:41 Blood Culture - Preliminary Blood NEGATIVE TO DATE A&P Assessment and plan (1) Acute lower gastrointestinal bleeding: bright red bleeding per rectum Underwent CT of the abdomen pelvis today which showed additional possibility of diverticulitis. Suspect cause of her bleeding to be diverticular bleeding versus hemorrhoidal bleeding. Plan for a flex sigmoidoscopy and upper GI endoscopy tomorrow. Holding off on full colonoscopy due to possibility of diverticulitis now. Start piperacillin tazobactam empirically. Status: Acute (2) Anemia: Likely from blood loss Hemoglobin upon admission was at 3.9. Patient is currently hemodynamically stable. She is status post 2 packed red blood cell transfusion. Hemoglobin is currently at 7.6. We will continue to monitor H&H every 8 hours. Transfusion threshold to be 7. Status: Acute (3) Chest pain: Suspect that patient's chest pain is currently related to demand ischemia. There are no acute ST-T wave changes noted on her EKG. However she does have evidence of CHF with preserved ejection fraction, likely precipitated by severe anemia. Signs of fluid overload include bilateral pleural effusion, transaminitis likely from congestive hepatopathy, elevated BNP, new oxygen requirement. Chest x-ray shows bilateral infiltrates, official read is that of pneumonia, however per my interpretation this is more likely to be pulmonary edema rather than pneumonia. Patient has no current signs and symptoms of infective pneumonic process. She is afebrile. No cough or sputum production. Troponin trend 20 at baseline, this morning trended up slightly at 35. Delta significant at 15. No corresponding changes on EKG. Suspect that this is related to type II PA from severe anemia. Will continue troponin trend at 2 and 6 hours. Holding off on any aspirin or if empiric anticoagulation since patient is otherwise bleeding. Echocardiogram without any regional wall motion abnormalities. EF at 65%. No diastolic dysfunction. However noted signs of pulmonary hypertension with IVC congestion. Low suspicion for PE at this time, however if continues to have persisting chest pain or worsening hypoxia, will likely proceed with CTA to evaluate for PE. She just had a contrast study this morning for her abdomen and pelvis. Status: Acute (4) Transaminitis: Suspect related to hepatic congestion. Check acute hepatitis panel Status: Acute (5) Pleural effusion: Likely related to heart failure precipitated by severe anemia. Status: Acute Attestations Medical Necessity Statement*: Needs continued hospital admission in the ICU for close monitoring of her H&H, ongoing bleeding, heart failure precipitated by severe anemia Critical Care Time: The high probability of a clinically significant, sudden or life threatening deterioration of the patient's [respiratory, cardiac, hematology] system(s) required my full and direct attention, intervention and personal management. The critical care time is as shown. This time is in addition to time spent performing any reported procedures but includes the following: [x] Data and vital sign review and interpretation [x] Patient assessment, examination and intervention [x] Documentation [x] Medication orders and management Critical Care Time (min): 45 Coding Level of Care Code Acute Citizenship Instructor for Chg Fwd Diagnoses Acute lower gastrointestinal bleeding K92.2 Anemia D64.9 Chest pain R07.9 Transaminitis R74.01 Pleural effusion J90
[2022-07-10 14:13] LABS: Troponin 5 2HR 35.13 ng/L (0-10)
[2022-07-10 14:23] LABS: Troponin 5 2HR Delta 0.13 ABS# (0-10)
[2022-07-10] MEDS: lidocaine 1% INJ 20 mL MDV (mL) 5 ML IV ×2 (14:40→17:36)
--- NOTE | 2022-07-10 15:35 | ECG_ITS ---
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 Measurements Intervals [place] Rate: 79 P: 48 ME: 152 QRS: 26 QRSD: 89 T: 35 QT: 385 QTc: 441 Interpretive Statements SINUS RHYTHM Compared to ECG 07/10/2022 13:52:42 Sinus arrhythmia no longer present Electronically Signed On 07-10-2022 16:26:41 CDT by Kyra Felix M.D. [id number]
[2022-07-10 17:59] LABS: Hematocrit 24.8 % (37.0-47.0); Hemoglobin 7.3 g/dL (11.5-15.3)
--- NOTE | 2022-07-10 18:09 | PC.NURSE ---
Patient has been attempting to drink bowel prep this shift. She states she is having a hard time drinking because it taste bad. This nurse has been encouraging drinking. Frequent bowel movements have been noted being blood mixed with brown stool.
[2022-07-10 18:24] LABS: Troponin 5 6HR 38.75 ng/L (0-10)
[2022-07-10 18:51] LABS: Troponin 5 6HR Delta -2.75 ng/L (0-12)
--- NOTE | 2022-07-10 20:49 | ECG_ITS ---
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 Measurements Intervals [place] Rate: 74 P: 63 NE: 159 QRS: 42 QRSD: 86 T: 52 QT: 386 QTc: 429 Interpretive Statements SINUS RHYTHM LOW QRS VOLTAGE IN PRECORDIAL LEADS [QRS DEFLECTION < 1.0 mV IN CHEST LEADS] Compared to ECG 07/10/2022 15:35:15 Low QRS voltage now present Electronically Signed On 07-11-2022 11:13:34 CDT by Kyra Felix M.D. [id number]
[2022-07-10] MEDS: duloxetine 60 mg Capsule PO (23:11)
[2022-07-11] VITALS (100 sets, daily range): BP systolic 88–175; BP diastolic 56–148; PULSE 67–93; RESP 13–33; TEMP 35.8–36.9; O2SAT 87–100; BMI 37.6
[2022-07-11] MEDS: pantoprazole 40 mg SDV IVP ×2 (01:12→13:16)
[2022-07-11] MEDS: piperacillin-tazobactam 3.375 GM in sodium chloride 0.9% (plus) 50 ML IV ×3 (04:50→21:07)
[2022-07-11 05:02] LABS: Basophils # 0.1 10^3/uL (0.0-0.1); Basophils % 0.7 %; Eosinophils # 0.2 10^3/uL (0.0-0.8); Hematocrit 23.7 % (37.0-47.0); Hemoglobin 7.3 g/dL (11.5-15.3); Lymphocytes # 1.5 10^3/uL (0.8-4.8); Mean Corpuscular HGB Conc 30.8 g/dL (30.0-36.0); Mean Corpuscular Hemoglobin 21.7 pg (28.0-34.0); Mean Corpuscular Volume 70.3 fl (81-99); Mean Platelet Volume 9.2 fL (7.4-10.4); Monocytes % 8.9 %; Neutrophils % 71.1 %; Nucleated Red Blood Cells # 0.1 /100WBC; Platelet Count 330 10^3/cmm (130-400); Red Blood Count 3.37 10^6/uL (4.1-5.3); Red Cell Distribution Width 23.7 % (12.1-15.1); White Blood Count 10.8 10^3/uL (4.0-10.0)
[2022-07-11 05:27] LABS: Alanine Aminotransferase 497 U/L (0-33); Albumin Level 3.2 g/dL (3.5-5.2); Alkaline Phosphatase 128 U/L (35-105); Anion Gap 13.2 (5-19); Aspartate Amino Transferase 263 U/L (0-32); Blood Urea Nitrogen 9 mg/dL (8-23); Calcium 7.3 mg/dL (8.5-10.5); Carbon Dioxide 25 mmol/L (22-29); Chloride 92 mmol/L (98-107); Creatinine Clr Calc Pharmacy 96.7402; Globulin 3.2 g/dL (1.3-4.6); Glomerular Filtration Rate 85.1 mL/min (90-130); Glucose 164 mg/dL (65-115); Osmolality Calculated 266 mOsm/kg (285-295); Potassium 3.2 mmol/L (3.5-5.1); Sodium 127 mmol/L (136-145); Total Bilirubin 0.9 mg/dL (0.15-1.2); Total Protein 6.4 g/dL (6.6-8.7)
--- NOTE | 2022-07-11 06:19 | PM.PN ---
Subjective Subjective: Patient continued to be in the ICU under closer monitoring, patient started the colon prep but could not finish the whole GoLytely and she still have residual stool but no bleeding episodes. Chest pain resolved. Hospitalist on board for further work-up. CT of the abdomen pelvis was done with my request to assess for potential underlying pathology that would help identify the source of GI bleeding. And that did show; 1.? Suspicion for mild or early diverticulitis with thickening of the sigmoid colon with minimal induration. 2.? Small RIGHT greater than LEFT pleural effusion with compressive atelectasis in the lung bases. 3.? Small amount of induration and edema about the C-loop of duodenum can be seen with duodenitis. Pancreas appears normal. Recommend correlation with pancreatic function studies to exclude pancreatitis. 4.? Mild diffuse fatty infiltration of the liver. 5.? No other suspicious findings. ? Vitals/I&O/Wt Last Vital Signs Temp 98.1 F 07/11/22 04:00 Pulse 85 07/11/22 06:00 Resp 21 H 07/11/22 06:00 BP 117/66 07/11/22 06:00 Pulse Ox 98 07/11/22 03:30 O2 Del Method 07/10/22 20:52 O2 Flow Rate 2 07/10/22 20:52 07/10/22 07/10/22 07/11/22 14:59 22:59 06:59 Intake Total 750 / 750 250 / 1000 Output Total 475 / 475 900 / 1375 Balance 275 / 275 -650 / -375 Weight last 48 hrs Weight 219 lb 4.8 oz Weight 212 lb Physical Exam Narrative: Patient is conscious alert oriented X3 No apparent distress BMI 38 Head and neck examination PERRLA no masses no cervical lymphadenopathy no jaundice Abdomen nontender nondistended soft no organomegaly guarding or rigidity/no signs of peritonitis Data : 07/11/22 04:15 07/11/22 04:15 Micro: Microbiology 07/09/22 12:38 Blood Culture - Preliminary Blood NEGATIVE TO DATE 07/09/22 12:41 Blood Culture - Preliminary Blood NEGATIVE TO DATE A&P Assessment and plan (1) Acute lower gastrointestinal bleeding: Plan of care; After thorough history and physical examination and reviewing the chart and CT scan of the abdomen pelvis per my personal interpretation I agree on the thickness of the duodenum and subtle thickness of the sigmoid colon and definitely presence of diverticular disease of the sigmoid colon, plan to perform a diagnostic esophagogastroduodenoscopy to rule out potential gastropathy/duodenal ulcer and diagnostic colonoscopy with possible biopsy and possible polypectomy with examination under anesthesia and possible hemorrhoidectomy. Today in the OR. I did explain for the patient that likely the colonoscopy would be limited to flex sigmoidoscopy depending on the Intra-Op procedure findings,in the light of the CT scan findings of concern about diverticulitis and induration to minimize potential risk of perforation. Assurance and education All questions have been answered and all concerns have been addressed to patient's satisfaction. 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
--- NOTE | 2022-07-11 07:39 | ANES.PREANE2 ---
Pre-Anesthetic Assessment Height/Weight: Height 1.63 m Weight 99.473 kg Temp Pulse Resp BP Pulse Ox O2 Del Method O2 Flow Rate 97.5 F L 86 18 127/70 99 2 07/11/22 07:26 07/11/22 07:26 07/11/22 07:26 07/11/22 07:26 07/11/22 07:26 07/10/22 20:52 07/10/22 20:52 Operation Date: 07/11/22 08:00 Proposed Procedures p EGD(Not Applicable) - Chinedu Kendall MD s Colonoscopy(Not Applicable) - Chinedu Kendall MD s Hemorroidectomy(Not Applicable) - Chinedu Kendall MD Familial anesthetic complications: None Was Beta Myah taken within 24 hours: N/A Was Clonidine taken within 24 hours: N/A Last Intake: 19:00 (07/09/22) Social Alcohol (Social) and No tobacco Exam alert, oriented x 3, clear to auscultation bilaterally and regular rate & rhythm Airway Submandibular: within normal limits (TMJ) Cervical ROM: within normal limits Mallampati: Class III Dentition: full History/ROS No significant history except as noted and No significant complaints Pulmonary Asthma (Last used inhaler in spring. Uses PRN), Chronic Obstructive Pulmonary Disease, Sleep Apnea (CPAP) and Shortness of Breath CV/HEM Stable Angina (Chest pain upon arrival. None this AM), Congestive Heart Failure and Palpitations None reported Hepatic None reported GI Gastroesophageal Reflux Disease (Takes OTC meds; well controlled) and Hiatal Hernia Metabolic Diabetes Mellitus and Thyroid Disease [facility] [place] Fibromyalgia, Lower Back Pain and Osteoarthritis/DJD Neuropsych Anxiety, Depression and Neuropathy (RLS) Anesthetic Plan ASA status: 3 Anesthesia: Anesthesia Evaluation, General and MAC Risk of > 500 ml blood loss (7ml/kg in children): No Medications/Allergies Home Medications Medication Instructions Recorded Confirmed Last Taken Type albuterol sulfate 90 mcg/actuation 2 puff inhalation Q4H PRN 07/09/22 07/09/22 Unknown History aerosol inhaler Shortness Of Breath Or Wheezing aspirin-caffeine 500 mg-32.5 mg 1 tab PO Q6H PRN Pain 07/09/22 07/09/22 07/08/22 History tablet ([facility] [employer]) biotin 5,000 mcg disintegrating 5,000 mcg PO DAILY 07/09/22 07/09/22 07/08/22 History tablet docusate sodium 100 mg tablet 200 mg PO BEDTIME 07/09/22 07/09/22 07/08/22 History (Stool Softener) duloxetine 60 mg capsule,delayed 60 mg PO BEDTIME 07/09/22 07/09/22 07/08/22 History release estradiol 2 mg tablet 2 mg PO DAILY 07/09/22 07/09/22 07/08/22 History magnesium 250 mg tablet 250 mg PO BEDTIME 07/09/22 07/09/22 07/08/22 History melatonin 10 mg tablet 10 mg PO BEDTIME 07/09/22 07/09/22 07/08/22 History metformin 1,000 mg tablet 1,000 mg PO BID 07/09/22 07/09/22 07/08/22 History metoprolol succinate 100 mg 100 mg PO DAILY 07/09/22 07/09/22 07/08/22 History tablet,extended release 24 hr omeprazole 20 mg capsule,delayed 20 mg PO DAILY 07/09/22 07/09/22 07/08/22 History release pramipexole 1 mg tablet 2 mg PO BID 07/09/22 07/09/22 07/08/22 History progesterone micronized 200 mg 200 mg PO BEDTIME 07/09/22 07/09/22 07/08/22 History capsule thyroid (pork) 30 mg tablet ([employer]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 30 mg PO DAILY 07/09/22 07/09/22 07/08/22 History Thyroid) triamterene 37.5 1 cap PO DAILY 07/09/22 07/09/22 07/08/22 History mg-hydrochlorothiazide 25 mg capsule zinc 50 mg tablet 50 mg PO BID 07/09/22 07/09/22 07/08/22 History Allergies Allergy/AdvReac Type Severity Reaction Status Date / Time No Known Allergies Allergy Verified 07/09/22 18:03 Current Medications Generic Name Dose Route Start Last Admin Trade Name Freq PRN Reason Stop Dose Admin Docusate Sodium 200 mg 07/09/22 21:00 07/10/22 23:06 Docusate Sodium 100 Mg Capsule PO Not Given BEDTIME MARTHA Duloxetine HCl 60 mg 07/09/22 21:00 07/10/22 23:11 Duloxetine 60 Mg Capsule PO 60 mg BEDTIME MARTHA Administration Piperacillin Sod/Tazobactam 50 mls @ 12.5 mls/hr 07/10/22 13:45 07/11/22 04:50 Sod 3.375 gm/ Sodium Chloride IV 12.5 mls/hr Q8H MARTHA Administration Protocol Metoprolol Succinate 100 mg 07/10/22 09:00 07/10/22 09:07 Metoprolol Succinate Er (24 Hr) 100 Mg Tablet PO 100 mg DAILY MARTHA Administration Morphine Sulfate 2 mg 07/10/22 13:22 07/10/22 13:55 Morphine 4 Mg/Ml Sdv 1 Ml IVP 2 mg Q4H PRN Administration SEVERE PAIN Pantoprazole Sodium 40 mg 07/10/22 14:00 07/11/22 01:12 Pantoprazole 40 Mg Sdv IVP 40 mg Q12H MARTHA Administration PFSH Anesthesia Medical History Hemorrhoid Social History Substance/Drug Use: never Data Anesthesia : 07/11/22 04:15 07/11/22 04:15 Short CBC 07/09/22 07/09/22 07/09/22 Range/Units 11:25 12:41 17:11 WBC 14.4 H (4.0-10.0) 10^3/uL Hgb 3.9 L* 3.7 L* 4.9 L* D (11.5-15.3) g/dL Hct 14.8 L* 13.8 L* 17.4 L* (37.0-47.0) % MCV 63.2 L (81-99) fl Plt Count 358 (130-400) 10^3/cmm Neut % (Auto) 75.9 % Neut # (Auto) 10.98 H (1.8-7.7) 10^3/uL 07/09/22 07/10/22 07/10/22 Range/Units 23:04 06:21 09:40 WBC 10.8 H (4.0-10.0) 10^3/uL Hgb 6.2 L* 7.8 L 7.6 L (11.5-15.3) g/dL Hct 21.3 L 25.6 L 25.3 L (37.0-47.0) % MCV 70.7 L D (81-99) fl Plt Count 372 (130-400) 10^3/cmm Neut % (Auto) 72.9 % Neut # (Auto) 7.88 H (1.8-7.7) 10^3/uL 07/10/22 07/11/22 07/11/22 Range/Units 17:52 01:00 04:15 WBC 10.8 H (4.0-10.0) 10^3/uL Hgb 7.3 L 8.0 L 7.3 L (11.5-15.3) g/dL Hct 24.8 L 27.0 L 23.7 L (37.0-47.0) % MCV 70.3 L (81-99) fl Plt Count 330 (130-400) 10^3/cmm Neut % (Auto) 71.1 % Neut # (Auto) 7.70 (1.8-7.7) 10^3/uL BMP 07/09/22 07/10/22 07/10/22 11:25 06:21 09:40 Sodium 124 L Cancelled 129 L Potassium 3.5 Cancelled 2.8 L* Chloride 88 L Cancelled 93 L Carbon Dioxide 21 L Cancelled 23 BUN 22 Cancelled 14 Creatinine 1.1 H Cancelled 0.8 Glucose 216 H Cancelled 160 H Calcium 7.9 L Cancelled 7.5 L 07/11/22 04:15 Sodium 127 L Potassium 3.2 L Chloride 92 L Carbon Dioxide 25 BUN 9 Creatinine 0.7 Glucose 164 H Calcium 7.3 L Cardiac Enzymes 07/09/22 07/09/22 07/10/22 Range/Units 11:25 11:25 09:40 Troponin T Gen 5 ng/L 25 H 36 H (0-10) ng/L Troponin T 120 Minute (0-10) ng/L Delta Troponin T (0-10) ABS# Troponin T Hi Sens 6Hr (0-10) ng/L Troponin T Hi Sens 6Hr Delta (0-12) ng/L NT-Pro-B Natriuret Pep 555 H (0-125) pg/mL 07/10/22 07/10/22 Range/Units 13:48 17:52 Troponin T Gen 5 ng/L (0-10) ng/L Troponin T 120 Minute 35.13 H (0-10) ng/L Delta Troponin T 0.13 (0-10) ABS# Troponin T Hi Sens 6Hr 38.75 H (0-10) ng/L Troponin T Hi Sens 6Hr Delta -2.75 L (0-12) ng/L NT-Pro-B Natriuret Pep (0-125) pg/mL Liver Function 07/09/22 07/10/22 07/10/22 Range/Units 11:25 06:21 09:40 Total Bilirubin 0.6 Cancelled 1.3 H (0.15-1.2) mg/dL AST 491 H Cancelled 359 H (0-32) U/L ALT 451 H Cancelled 498 H (0-33) U/L Alkaline Phosphatase 107 H Cancelled 125 H (35-105) U/L Albumin 3.3 L Cancelled 3.1 L (3.5-5.2) g/dL 07/11/22 Range/Units 04:15 Total Bilirubin 0.9 (0.15-1.2) mg/dL AST 263 H (0-32) U/L ALT 497 H (0-33) U/L Alkaline Phosphatase 128 H (35-105) U/L Albumin 3.2 L (3.5-5.2) g/dL Urine 07/09/22 Range/Units 16:28 Urine Color Yellow (Yellow) Urine Appearance Hazy A (CLEAR) Urine pH 5 (5-7) Ur Specific [place] 1.020 (1.005-1.030) Urine Protein 1+ H (Negative) Urine Glucose (UA) Norm (Normal) Urine Ketones Negative (Negative) Urine Nitrate Negative (Negative) Urine Bilirubin 1+ H (Negative) Ur Leukocyte Esterase Negative (Negative) Urine RBC 0-4 H (0-2) /hpf Urine WBC 0-4 H (0-5) /hpf Blood Bank 07/09/22 12:41 Blood Type O Positive Rho(D) Type Positive Antibody Screen Negative COVID Results 07/09/22 12:55 SARS-CoV-2 Ag (Rapid) Negative Coags 07/09/22 11:25 PT 16.60 H INR 1.31 H Microbiology 07/09/22 12:38 Blood Culture - Preliminary Blood NEGATIVE TO DATE 07/09/22 12:41 Blood Culture - Preliminary Blood NEGATIVE TO DATE Cardiac Studies: Echocardiogram Ultrasound 07/09/22
--- NOTE | 2022-07-11 08:52 | ANE.PACU2 ---
Inpatient post-anesthesia follow up: Airway intact: Yes Vital signs: Temperature 97.5 F Pulse Rate 86 Respiratory Rate 18 Blood Pressure 127/70 Pulse Oximetry 99 Oxygen Delivery Me thod Nasal Cannula Oxygen Flow Rate 2 Fraction of Inspir ed Oxygen Hydration adequate: Yes Nausea and vomiting: No Pain level: 2 Mental status: Baseline
[2022-07-11] MEDS: metoprolol succinate ER (24 HR) 100 mg Tablet PO (09:26)
[2022-07-11] MEDS: FUROsemide 10 mg/mL SDV 4mL 40 MG IVP (10:04)
[2022-07-11] MEDS: lidocaine 1% 5 ML in potassium chloride premix 100 ML 25 ML IV (10:06)
--- NOTE | 2022-07-11 15:03 | XRR_ITS ---
PROCEDURE INFORMATION: Exam: XR Chest Exam date and time: 07/11/2022 3:20 PM Age: 62 years old Clinical indication: Dyspnea; Additional info: Follow up chest infiltrates TECHNIQUE: Imaging protocol: Radiologic exam of the chest. Views: 1 view. COMPARISON: CR XR chest 1V portable [id number] 07/09/2022 11:07 AM FINDINGS: Lungs: Ill-defined bibasilar opacities which may reflect infiltrates versus atelectasis. Pleural spaces: Bilateral small volume pleural effusions. No pneumothorax. Heart/Mediastinum: Unremarkable. No cardiomegaly. Bones/joints: Unremarkable. XR/XR chest 1V portable [id number] IMPRESSION: Bilateral small volume pleural effusions. Ill-defined bibasilar opacities which may reflect infiltrates versus atelectasis.
[2022-07-11] MEDS: ALPRAZolam 0.5 mg Tablet PO (15:10)
--- NOTE | 2022-07-11 15:18 | P.PN_ITS ---
Subjective Subjective: Status post upper GI endoscopy and colonoscopy today. Colonoscopy was able to be completed after no signs of diverticulitis were found. No active bleeding has been noted. Patient has not had a bloody bowel movement since yesterday. Hemoglobin this morning is at 7.3. Urine output charted at 1.3 L. Overall net positive 2.7L. No further complaints of chest pain. Medications: Reviewed: Yes Vitals/I&O/Wt Last Vital Signs Temp 97.7 F 07/11/22 10:50 Pulse 85 07/11/22 14:15 Resp 30 H 07/11/22 14:15 BP 123/61 07/11/22 14:15 Pulse Ox 96 07/11/22 10:45 O2 Del Method 07/11/22 09:05 O2 Flow Rate 2 07/11/22 09:05 07/11/22 07/11/22 07/11/22 06:59 14:59 22:59 Intake Total 250 / 1000 1065 / 1065 Output Total 900 / 1375 Balance -650 / -375 1065 / 1065 Weight last 48 hrs Weight 99.473 kg Weight 99.473 kg Physical Exam Narrative: General: No acute distress, seen in the morning just after returning for colonoscopy. Patient was somewhat somnolent, however easily woke up to calling name, able to have a completely lucid conversation. Alert awake oriented x3. Wishes to rest. Likely somnolence related to recent anesthesia. HEENT: PERRLA, pupils bilaterally equal and reactive, pallors not present Chest: Normal vesicular breath sounds, no added sounds, equal good air entry b ilaterally CVS: S1-S2 regular, no murmurs, no tachycardia, no gallops, no rubs Abdomen: Soft, nontender, no organomegaly, bowel sounds present Neuro: No focal deficits, no facial deformity, AO x3, power 5/5 in all limbs Data : 07/11/22 04:15 07/11/22 04:15 Micro: Microbiology 07/09/22 12:38 Blood Culture - Preliminary Blood NEGATIVE TO DATE 07/09/22 12:41 Blood Culture - Preliminary Blood NEGATIVE TO DATE A&P Assessment and plan (1) Acute lower gastrointestinal bleeding: bright red bleeding per rectum now resolved Suspect cause of her bleeding to be diverticular bleeding versus hemorrhoidal bleeding. Status post upper and lower GI endoscopy 2-day which showed diverticulosis but no signs of bleeding. Likely that diverticular bleed may have resolved. (2) Anemia: Likely from blood loss Hemoglobin upon admission was at 3.9. Now improved to 7.3. She is status post 3 packed red blood cell transfusion. We will keep transfusion threshold at 7.5 given the patient also is showing signs of decompensated heart failure likely precipitated by acute severe anemia. (3) Chest pain: Chest pain now resolved. There are no acute ST-T wave changes noted on her EKG. However she does have evidence of CHF with preserved ejection fraction, likely precipitated by severe anemia. Signs of fluid overload include bilateral pleural effusion, transaminitis likely from congestive hepatopathy, elevated BNP, new oxygen requirement. Chest x-ray shows bilateral infiltrates, official read is that of pneumonia, however per my interpretation this is more likely to be pulmonary edema rather than pneumonia. Patient has no current signs and symptoms of infective pneumonic process. She is afebrile. No cough or sputum production. Repeat CXR today Troponin trend 20 at baseline, thereafter 35 and 37. Suspect that this is related to type II NE from severe anemia. Holding off on any aspirin or if empiric anticoagulation since patient is otherwise bleeding. Echocardiogram without any regional wall motion abnormalities. EF at 65%. No diastolic dysfunction. However noted signs of pulmonary hypertension with IVC congestion. lasix 40mg IVP again today, monitor urine output. (4) Transaminitis: Suspect related to hepatic congestion vs fatty liver Noted hepatic steatosis on CT abdomen. negative acute hepatitis panel Stable today (5) Pleural effusion: Suspect related to heart failure precipitated by severe anemia. Plan # hyponatremia: fluid restiction, add salt tabs 1gm BId. Check CMP at 2300 Attestations Medical Necessity Statement*: s/p EGD/colonoscopy today, started on [facility] soft diet, blood transusion, iv diuresis, CHF Coding Level of Care Code Acute Insurance Follow Up Rep for [facility] Fwd Diagnoses Acute lower gastrointestinal bleeding K92.2 Anemia D64.9 Chest pain R07.9 Transaminitis R74.01 Pleural effusion J90
[2022-07-11] MEDS: pramipexole 0.25 mg Tablet 2 MG PO (17:34)
[2022-07-11] MEDS: sodium chloride 1 gm Tablet PO (17:35)
[2022-07-11] MEDS: docusate sodium 100 mg Capsule 200 MG PO (20:00)
[2022-07-11] MEDS: duloxetine 60 mg Capsule PO (20:00)
[2022-07-11 23:32] LABS: Alanine Aminotransferase 356 U/L (0-33); Albumin Level 2.9 g/dL (3.5-5.2); Alkaline Phosphatase 136 U/L (35-105); Blood Urea Nitrogen 8 mg/dL (8-23); Carbon Dioxide 24 mmol/L (22-29); Chloride 93 mmol/L (98-107); Globulin 2.8 g/dL (1.3-4.6); Glomerular Filtration Rate 101.6 mL/min (90-130); Glucose 234 mg/dL (65-115); Osmolality Calculated 276 mOsm/kg (285-295); Sodium 130 mmol/L (136-145); Total Bilirubin 0.5 mg/dL (0.15-1.2); Total Protein 5.7 g/dL (6.6-8.7)
[2022-07-11 23:33] LABS: Aspartate Amino Transferase 129 U/L (0-32)
[2022-07-12] VITALS (28 sets, daily range): BP systolic 110–144; BP diastolic 55–92; PULSE 71–88; RESP 13–19; TEMP 36.8–37.1; O2SAT 95–96; BMI 37.6
[2022-07-12] MEDS: pantoprazole 40 mg SDV IVP (01:02)
[2022-07-12 03:51] LABS: Basophils # 0.1 10^3/uL (0.0-0.1); Basophils % 0.7 %; Eosinophils # 0.2 10^3/uL (0.0-0.8); Eosinophils % 2.4 %; Hematocrit 25.8 % (37.0-47.0); Hemoglobin 7.8 g/dL (11.5-15.3); Lymphocytes # 1.8 10^3/uL (0.8-4.8); Lymphocytes % 21.8 %; Mean Corpuscular HGB Conc 30.2 g/dL (30.0-36.0); Mean Corpuscular Hemoglobin 21.9 pg (28.0-34.0); Mean Corpuscular Volume 72.5 fl (81-99); Mean Platelet Volume 9.1 fL (7.4-10.4); Monocytes # 0.8 10^3/uL (0.2-0.9); Monocytes % 9.1 %; Neutrophils # 5.25 10^3/uL (1.8-7.7); Neutrophils % 62.1 %; Nucleated Red Blood Cells # 0.1 /100WBC; Nucleated Red Blood Cells % 0.7 %; Platelet Count 300 10^3/cmm (130-400); Red Blood Count 3.56 10^6/uL (4.1-5.3); White Blood Count 8.5 10^3/uL (4.0-10.0)
[2022-07-12 04:16] LABS: Alanine Aminotransferase 344 U/L (0-33); Alkaline Phosphatase 142 U/L (35-105); Aspartate Amino Transferase 108 U/L (0-32); Blood Urea Nitrogen 9 mg/dL (8-23); Calcium 7.3 mg/dL (8.5-10.5); Carbon Dioxide 26 mmol/L (22-29); Globulin 2.7 g/dL (1.3-4.6); Glomerular Filtration Rate 101.6 mL/min (90-130); Glucose 221 mg/dL (65-115); Total Bilirubin 0.6 mg/dL (0.15-1.2); Total Protein 5.7 g/dL (6.6-8.7)
[2022-07-12 04:25] LABS: Anion Gap 13.1 (5-19); Chloride 97 mmol/L (98-107); Osmolality Calculated 281 mOsm/kg (285-295); Sodium 133 mmol/L (136-145)
[2022-07-12 04:27] LABS: Potassium 3.1 mmol/L (3.5-5.1)
[2022-07-12] MEDS: piperacillin-tazobactam 3.375 GM in sodium chloride 0.9% (plus) 50 ML IV (05:44)
--- NOTE | 2022-07-12 07:07 | PC.NURSE ---
bedside report received from Francesco BLAKE
--- NOTE | 2022-07-12 07:09 | PM.PN ---
Subjective Subjective: Patient undergone uneventful EGD and colonoscopy 07/11/2022, and was found to have mild GERD and mild erythema at the prepyloric area. And colonoscopy showed no evidence of diverticulitis but did show pandiverticulosis. There was no evidence of bleeding. No acute events overnight. Tolerating p.o. intake and hemoglobin 7.8 g/dL today Medications: Reviewed: Yes Vitals/I&O/Wt Last Vital Signs Temp 98.2 F 07/12/22 04:00 Pulse 78 07/12/22 06:00 Resp 19 H 07/12/22 06:00 BP 125/78 07/12/22 06:00 Pulse Ox 98 07/11/22 20:45 O2 Del Method 07/11/22 20:37 O2 Flow Rate 2 07/11/22 09:05 07/11/22 07/12/22 07/12/22 22:59 06:59 14:59 Intake Total 810 / 1875 850 / 2725 Output Total 700 / 700 Balance 110 / 1175 850 / 2025 Weight last 48 hrs Weight 219 lb 4.8 oz Weight 219 lb 4.8 oz Physical Exam Narrative: Patient is conscious alert oriented X3 No apparent distress BMI 38 Head and neck examination PERRLA no masses no cervical lymphadenopathy no jaundice Abdomen nontender nondistended soft no organomegaly guarding or rigidity/no signs of peritonitis Data : 07/12/22 03:08 07/12/22 03:08 A&P Assessment and plan (1) Anemia: If continues to be concerned about a GI source for bleeding patient would be an appropriate candidate for capsule endoscopy as an outpatient as long as she continues to be appropriately medically stable with the plan to follow-up with me as an outpatient to schedule the capsule endoscopy. Assurance and education All questions have been answered and all concerns have been addressed to patient's satisfaction. (2) Acid reflux: Raise the head of the bed 4-6 inches Frequent small meals through the day Avoid smoking or Chewing Tobacco Avoid excess coffee, tea, and other caffeinated beverages Avoid garments that fit tightly through the abdomen Avoid eating before going to sleep Avoid nonsteroidal anti-inflammatory drugs (NSAIDs) when possible Anti-reflux diet Anti-reflux medications as prescribed Emphasis on weight management (3) Diverticulosis large intestine w/o perforation or abscess w/bleeding: Plan of care; Review the pathology with the patient Return to primary care provider Avoid constipation Avoid seeds nuts and popcorn High Fiber diet; As Fiber softens the stool and helps prevent constipation. It also can help decrease pressure in the colon and help prevent flare-ups of diverticulitis. High-fiber foods include: ? Beans and legumes ? Bran, whole wheat bread and whole grain cereals such as oatmeal ? Brown and wild rice ? Fruits such as apples, bananas and pears ? Vegetables such as broccoli, carrots, corn and squash ? Whole wheat pasta The target is to eat 25 to 30 grams of fiber daily. Drink at least 8 cups of fluid daily. Fluid will help soften your stool.Exercise also promotes bowel movement and helps prevent constipation. Weight management Assurance and education All questions have been answered Attestations Medical Necessity Statement*: Per admitting service Coding Level of Care Code Acute [employer] for g Fwd Diagnoses Anemia D64.9 Acid reflux K21.9 Diverticulosis large intestine w/o perforation or abscess w/bleeding K57.31
--- NOTE | 2022-07-12 09:35 | PC.SOCIAL ---
IMM update IMM updated with patient. Verbalized an understanding. Copy pg 2 provided. Initialled, dated, timed, and placed in chart.
[2022-07-12] MEDS: metoprolol succinate ER (24 HR) 100 mg Tablet PO (10:25)
[2022-07-12] MEDS: thyroid 60 mg Tablet 30 MG PO (10:26)
[2022-07-12] MEDS: pramipexole 0.25 mg Tablet 2 MG PO (10:27)
--- NOTE | 2022-07-12 10:33 | P.DS_ITS ---
Discharge Providers Date of Admission: 07/09/22 19:28 Date of Discharge: July 12, 2022 Attending Provider at Admission: Zenobia García MD Attending Provider at Discharge: Zenobia García MD Consults: Chinedu Powers MD/general surgery Diagnoses at Discharge Discharge Diagnosis (1) Diverticulosis large intestine w/o perforation or abscess w/bleeding: Status: Chronic (2) CHF (congestive heart failure): Status: Acute (3) Anemia: Status: Chronic (4) Acid reflux: Status: Acute (5) Pleural effusion: Status: Acute Reason for Visit Reason for Visit: rectal bleeding Hospital Course Hospital Course Ms. Carlos Gonzalez is a 66-year-old lady with a past medical history of hemorrhoids who presented to the emergency room with bright red bleeding per rectum on July 09, 2022. Because of the blood loss her hemoglobin had dropped to as low as 3.9. She received transfusion with total 4 units of packed red blood cells, following which her hemoglobin has now stabilized at 7.8. She underwent both upper GI and lower GI endoscopy on July 11, 2022 which did not show any active signs of bleeding. Significant diverticular disease was noted, and it is possible that she had a diverticular source of bleeding which has since resolved. CT of her abdomen and pelvis noted suspicion for diverticulitis, however no diverticulitis were found on her colonoscopy. Additionally she had no clinical signs or symptoms to suggest diverticulitis. Antibiotics have therefore been discontinued at the time of discharge. At the time of discharge she is not having any more bloody bowel movements. Her hemoglobin is stable as noted above. Other features upon presentation included chest pain and shortness of breath. There were no acute ST-T wave changes on her EKG, however her troponins were mildly elevated. She had evidence of heart failure, most likely precipitated by acute severe anemia. Signs of fluid overload included bilateral pleural effusion, transaminitis likely from congestive hepatopathy, elevated BNP and new oxygen requirement of 2 L/min. She had no clinical signs of an infective process such as a pneumonia. Troponins were mildly elevated at 20, 35 and 37. She received Lasix for IV diuresis and has responded well. She continues to have small bilateral pleural effusions at the time of discharge for which 20 mg of p.o. Lasix is being given for the next 3 days. She has been able to be weaned down from 2 L/min to room air and saturating 95 to 96%. Echocardiogram did not show any regional wall motion abnormalities, therefore ACS was highly unlikely. Her EF was at 65%. No diastolic dysfunction. Noted signs of pulmonary hypertension with IVC congestion. Her transaminitis is improving at the time of discharge, suspect this was related to hepatic congestion versus fatty liver. Hepatic steatosis was noted on CT of her abdomen. Negative acute hepatitis panel. Electrolyte abnormalities included hyponatremia, she received p.o. salt supplementation 1 g twice daily following which sodium is now improved at 133. Hypokalemia was corrected on a daily basis with supplemental potassium. She is significantly improved at the time of discharge. Has no current chest pain dyspnea or palpitations. No further bleeding episodes. She is being discharged today in stable condition. Patient is moving out of [facility] in 2 days and moving to [facility]. She is highly encouraged to establish care with a primary care provider to follow-up on her hemoglobin and liver function in the next 10 to 14 days. I have also given her referrals to follow-up with Dr. Powers if she is unable to establish as an outpatient in the next 10 to 14 days. Physical Exam Narrative: General: No acute distress, AO x3 HEENT: PERRLA, pupils bilaterally equal and reactive, pallors not present Chest: Normal vesicular breath sounds, no added sounds, equal good air entry bilaterally CVS: S1-S2 regular, no murmurs, no tachycardia, no gallops, no rubs Abdomen: Soft, nontender, no organomegaly, bowel sounds present Neuro: No focal deficits, no facial deformity, AO x3, power 5/5 in all limbs Extremities: no edema, clubbing or cyanosis Discharge Data Studies Completed and Pending Completed Studies During Hospitalization Category Date Time Status CT abdomen pelvis w con* [id number] Urgent Cat Scan 07/10/22 06:07 Completed CXRP [XR chest 1V portable [id number]] Routine Exams 07/11/22 15:03 Completed XR chest 1V portable [id number] Stat Exams 07/09/22 11:00 Completed CV echo complete* [id number] Routine Ultrasound 07/09/22 22:17 Completed Pending at discharge Category Date Time Status Blood Culture Stat Lab 07/09/22 12:38 Results Radiology Impressions Abdomen/Pelvis CT 07/10/22 06:07 IMPRESSION: 1. Suspicion for mild or early diverticulitis with thickening of the sigmoid colon with minimal induration. 2. Small RIGHT greater than LEFT pleural effusion with compressive atelectasis in the lung bases. 3. Small amount of induration and edema about the C-loop of duodenum can be seen with duodenitis. Pancreas appears normal. Recommend correlation with pancreatic function studies to exclude pancreatitis. 4. Mild diffuse fatty infiltration of the liver. 5. No other suspicious findings. Chest X-Ray 07/11/22 15:03 IMPRESSION: Bilateral small volume pleural effusions. Ill-defined bibasilar opacities which may reflect infiltrates versus atelectasis. Laboratory Results WBC 8.5 10^3/uL (4.0-10.0) 07/12/22 03:08 RBC 3.56 10^6/uL (4.1-5.3) L 07/12/22 03:08 Hgb 7.8 g/dL (11.5-15.3) L 07/12/22 03:08 Hct 25.8 % (37.0-47.0) L 07/12/22 03:08 MCV 72.5 fl (81-99) L 07/12/22 03:08 MCH 21.9 pg (28.0-34.0) L 07/12/22 03:08 MCHC 30.2 g/dL (30.0-36.0) 07/12/22 03:08 RDW 24.0 % (12.1-15.1) H 07/12/22 03:08 Plt Count 300 10^3/cmm (130-400) 07/12/22 03:08 MPV 9.1 fL (7.4-10.4) 07/12/22 03:08 Neut % (Auto) 62.1 % 07/12/22 03:08 Lymph % (Auto) 21.8 % 07/12/22 03:08 [place] % (Auto) 9.1 % 07/12/22 03:08 Eos % (Auto) 2.4 % 07/12/22 03:08 Baso % (Auto) 0.7 % 07/12/22 03:08 Neut # (Auto) 5.25 10^3/uL (1.8-7.7) 07/12/22 03:08 Lymph # (Auto) 1.8 10^3/uL (0.8-4.8) 07/12/22 03:08 [place] # (Auto) 0.8 10^3/uL (0.2-0.9) 07/12/22 03:08 Eos # (Auto) 0.2 10^3/uL (0.0-0.8) 07/12/22 03:08 Baso # (Auto) 0.1 10^3/uL (0.0-0.1) 07/12/22 03:08 Nucleated RBC % (auto) 0.7 % 07/12/22 03:08 Nucleated RBCs # 0.1 /100WBC 07/12/22 03:08 PT 16.60 SECONDS (12.1-14.9) H 07/09/22 11:25 INR 1.31 (0.8-1.2) H 07/09/22 11:25 Sodium 133 mmol/L (136-145) L 07/12/22 03:08 Potassium 3.1 mmol/L (3.5-5.1) L 07/12/22 03:08 Chloride 97 mmol/L (98-107) L 07/12/22 03:08 Carbon Dioxide 26 mmol/L (22-29) 07/12/22 03:08 Anion Gap 13.1 (5-19) 07/12/22 03:08 BUN 9 mg/dL (8-23) 07/12/22 03:08 Creatinine 0.6 mg/dL (0.5-0.9) 07/12/22 03:08 GFR Calculation 101.6 mL/min (90-130) 07/12/22 03:08 Glucose 221 mg/dL (65-115) H 07/12/22 03:08 Calculated Osmolality 281 mOsm/kg (285-295) L 07/12/22 03:08 Calcium 7.3 mg/dL (8.5-10.5) L 07/12/22 03:08 Total Bilirubin 0.6 mg/dL (0.15-1.2) 07/12/22 03:08 AST 108 U/L (0-32) H 07/12/22 03:08 ALT 344 U/L (0-33) H 07/12/22 03:08 Alkaline Phosphatase 142 U/L (35-105) H 07/12/22 03:08 Troponin T Gen 5 ng/L 36 ng/L (0-10) H 07/10/22 09:40 Troponin T 120 Minute 35.13 ng/L (0-10) H 07/10/22 13:48 Delta Troponin T 0.13 ABS# (0-10) 07/10/22 13:48 Troponin T Hi Sens 6Hr 38.75 ng/L (0-10) H 07/10/22 17:52 Troponin T Hi Sens 6Hr Delta -2.75 ng/L (0-12) L 07/10/22 17:52 NT-Pro-B Natriuret Pep 555 pg/mL (0-125) H 07/09/22 11:25 Total Protein 5.7 g/dL (6.6-8.7) L 07/12/22 03:08 Albumin 3.0 g/dL (3.5-5.2) L 07/12/22 03:08 Globulin 2.7 g/dL (1.3-4.6) 07/12/22 03:08 Lipase 41 U/L (13-60) 07/09/22 11:25 Procalcitonin 0.13 ng/mL (0-0.5) 07/09/22 11:25 Urine Color Yellow (Yellow) 07/09/22 16:28 Urine Appearance Hazy (CLEAR) A 07/09/22 16:28 Urine pH 5 (5-7) 07/09/22 16:28 Ur Specific [place] 1.020 (1.005-1.030) 07/09/22 16:28 Urine Protein 1+ (Negative) H 07/09/22 16:28 Urine Glucose (UA) Norm (Normal) 07/09/22 16:28 Urine Ketones Negative (Negative) 07/09/22 16:28 Urine Blood Neg (Negative) 07/09/22 16:28 Urine Nitrate Negative (Negative) 07/09/22 16:28 Urine Bilirubin 1+ (Negative) H 07/09/22 16:28 Urine Urobilinogen 1 mg/dL (Negative) H 07/09/22 16:28 Ur Leukocyte Esterase Negative (Negative) 07/09/22 16:28 Urine RBC 0-4 /hpf (0-2) H 07/09/22 16:28 Urine WBC 0-4 /hpf (0-5) H 07/09/22 16:28 Ur Squamous Epith Cells 0-4 /hpf (0-5) H 07/09/22 16:28 Amorphous Sediment Not Reportable 07/09/22 16:28 Urine Bacteria 1+ /hpf (NONE) H 07/09/22 16:28 Hepatitis A IgM Ab Non-reactive (Nonreactive) 07/10/22 09:40 Hep Bs Antigen Non-reactive (Nonreactive) 07/10/22 09:40 Hep Bs Antibody 3.5 (11.5-1000) L 07/10/22 09:40 Hep B Core Total Ab Non-reactive (Nonreactive) 07/10/22 09:40 Hepatitis C Antibody Non-reactive (Nonreactive) 07/10/22 09:40 SARS-CoV-2 Ag (Rapid) Negative (Negative) 07/09/22 12:55 Blood Type O Positive 07/09/22 12:41 Rho(D) Type Positive 07/09/22 12:41 Antibody Screen Negative 07/09/22 12:41 Crossmatch See Detail 07/09/22 12:41 Vitals Last Vital Signs Temp 98.2 F 07/12/22 04:00 Pulse 71 07/12/22 08:00 Resp 14 07/12/22 08:00 BP 144/92 07/12/22 08:00 Pulse Ox 95 07/12/22 08:00 O2 Del Method 07/12/22 08:00 O2 Flow Rate 2 07/11/22 09:05 Discharge Plan Discharge Patient Disposition: Home Condition: Stable Prescriptions: New pantoprazole [Protonix] 40 mg tablet,delayed release (DR/EC) 40 mg PO BID 14 Days Qty: 28 0RF furosemide [Lasix] 20 mg tablet 20 mg PO DAILY 3 Days Qty: 3 0RF Continued pramipexole 1 mg tablet 2 mg PO BID metoprolol succinate 100 mg tablet extended release 24 hr 100 mg PO DAILY triamterene-hydrochlorothiazid 37.5-25 mg capsule 1 cap PO DAILY metformin 1,000 mg tablet 1,000 mg PO BID progesterone micronized 200 mg capsule 200 mg PO BEDTIME estradiol 2 mg tablet 2 mg PO DAILY duloxetine 60 mg Capsule,Delayed Release(Dr/Ec) 60 mg PO BEDTIME PRE [employer] AIDE Thyroid 30 mg tablet 30 mg PO DAILY Prilosec 20 mg Capsule,Delayed Release(Dr/Ec) 20 mg PO DAILY zinc 50 mg Tablet 50 mg PO BID magnesium 250 mg Tablet 250 mg PO BEDTIME albuterol sulfate 90 mcg/actuation HFA aerosol inhaler 2 puff INHALATION Q4H PRN (Reason: Shortness Of Breath Or Wheezing) Stool Softener 100 mg Tablet 200 mg PO BEDTIME melatonin 10 mg Tablet 10 mg PO BEDTIME biotin 5,000 mcg Tablet,Disintegrating 5,000 mcg PO DAILY Discontinued Niurka Back and Body 500-32.5 mg Tablet 1 tab PO Q6H PRN (Reason: Pain) Discharge Orders: Discharge Order (Routine); Ordered 07/12/22 Ordered By: Zenobia García Referrals: Gaby Todd [Other] (Please arrange a hospital follow up with PCP Gaby Todd at the [facility]. Phone number is [phone].) Chinedu Kendall MD [Physician] - 2 weeks (Return to surgery office in 2 weeks after discharge from the hospital) Discharge Diet: As Directed Discharge Activity: Increase activity as tolerated Patient Instructions: Gastritis (DC), Hemorrhoids (GEN), Diverticulosis (GEN), GERD (Gastroesophageal Reflux Disease) (GEN), Opioid Safety Activity Restrictions/Additional Instructions: Plan of care; Review the pathology with the patient Return to primary care provider Avoid constipation Avoid seeds nuts and popcorn High Fiber diet; As Fiber softens the stool and helps prevent constipation. It also can help decrease pressure in the colon and help prevent flare-ups of diverticulitis. High-fiber foods include: ? Beans and legumes ? Bran, whole wheat bread and whole grain cereals such as oatmeal ? Brown and wild rice ? Fruits such as apples, bananas and pears ? Vegetables such as broccoli, carrots, corn and squash ? Whole wheat pasta The target is to eat 25 to 30 grams of fiber daily. Drink at least 8 cups of fluid daily. Fluid will help soften your stool.Exercise also promotes bowel movement and helps prevent constipation. Weight management Assurance and education All questions have been answered Discharge Attestations Time Spent in Discharge Care*: greater than 30 min Quality Metrics Clinical Quality Measures [ No reported AMI, CVA or VTE this stay] Coding Level of Care Code Acute Chg FW DC note Diagnoses Diverticulosis large intestine w/o perforation or abscess w/bleeding K57.31 CHF (congestive heart failure) I50.9 Anemia D64.9 Acid reflux K21.9 Pleural effusion J90
[2022-07-12] MEDS: potassium chloride ER 20 mEq Tablet 40 MEQ PO (11:36)
== END 2022-07-12 11:49 | disposition home or self-care (01) | DRG 377 ==
LOC: ER 15:51 → ICU 17:54
PROVIDERS: Family Medicine; Surgery; Admitting Provider Student in an Organized Health Care Education/Training Program; Emergency Provider Emergency Medicine; Visit Provider Student in an Organized Health Care Education/Training Program
PROC: 0DJ08ZZ Inspection of Upper Intestinal Tract, Via Natural or Artificial Opening Endoscopic (ICD-10-PCS; CPT 43235; principal; 2022-07-11 08:00)
PROC: 0DJD8ZZ Inspection of Lower Intestinal Tract, Via Natural or Artificial Opening Endoscopic (ICD-10-PCS; CPT 45378; 2022-07-11 08:00)
DX: K57.31 Diverticulosis of large intestine without perforation or abscess with bleeding (principal); I21.A1 Myocardial infarction type 2; I50.31 Acute diastolic (congestive) heart failure; E87.1 Hypo-osmolality and hyponatremia; D62 Acute posthemorrhagic anemia; E87.6 Hypokalemia; K64.9 Unspecified hemorrhoids; R74.01 Elevation of levels of liver transaminase levels; K21.00 Gastro-esophageal reflux disease with esophagitis, without bleeding; K76.0 Fatty (change of) liver, not elsewhere classified; G47.30 Sleep apnea, unspecified; E11.9 Type 2 diabetes mellitus without complications; E07.9 Disorder of thyroid, unspecified; M79.7 Fibromyalgia; J44.9 Chronic obstructive pulmonary disease, unspecified; M19.90 Unspecified osteoarthritis, unspecified site; Z79.84 Long term (current) use of oral hypoglycemic drugs
CPT/HCPCS: 36415; 36430; 71045; 74177; 80053; 81001; 83690; 83880; 84145; 84484; 85014; 85018; 85025; 85610; 86705; 86706; 86709; 86803; 86850; 86900; 86920; 87040; 87340; 87426; 93005; 93306; 94660; 96365; 96367; 96375; 99291; C9113; J0456; J0696; J1885; J1940; J2250; J2270; J2274; J2370; J2400; J2405; J2543; J2704; J3010; J3480; J7030; J7050; P9016; P9040; P9047; Q9967